=== PATIENT | male | born 1955 | race Caucasian/White ===

== ENCOUNTER 2020-09-04 08:30 | Day surgery (SDC) | payer OTHER ==
[~2020-09-04 08:30] MED LIST: LACTATED RINGERS 1,000 ML IV SCH; LIDOCAINE 1% (10MG/ML) FOR IV START INTRADERMA PRN
[2020-09-04 09:07] VITALS: TEMP 97.1
[2020-09-04] MEDS ORDERED: PROPOFOL 10 MG/ML 20 ML VIAL IV ONE (10:10)
--- NOTE | 2020-09-04 10:53 | P.PCN ---
Date of Procedure: 09/04/20 Description of Procedure: BRIEF HISTORY: Patient is a 65-year-old male presenting for outpatient colonoscopy for screening for malignant neoplasm of the colon. He was last colonoscopy was 9 years ago. He denies any change in bowel habits but reports chronic constipation at baseline and has used MiraLAX in the past. No family history of colon cancer. PROCEDURE PERFORMED: Colonoscopy with polypectomy. PREOPERATIVE DIAGNOSIS: Screening for malignant neoplasm of the colon, patient reports last colonoscopy 9 years ago. ESTIMATED BLOOD LOSS: Minimal. IV sedation per Anesthesia. PROCEDURE: After informed consent was obtained, the patient, was brought into the endoscopy unit. IV sedation was administered by Anesthesia under continuous monitoring. Digital rectal examination was normal. Initially the Olympus CF-190 flexible video colonoscope was then inserted in the rectum, gradually advanced into the cecum without any difficulty. Careful examination was performed as the scope was gradually being withdrawn. Ileocecal valve and the appendiceal orifice were visualized and appeared normal. Prep was excellent. Mucosa of the cecum, ascending colon, transverse colon, descending colon, sigmoid colon, and rectum appeared normal. Cold forceps polypectomy of diminutive polyps measuring 1-2 mm in size from the hepatic flexure 2, transverse colon, and rectum. Flat 4 mm descending colon polyp removed with cold snare polypectomy. Sessile rectal polyps measuring 5 and 6 mm in size removed with cold snare polypectomy. Retroflexion was performed in the rectum and no lesions were seen. The patient tolerated the procedure well. IMPRESSION: Cold snare polypectomy of a medium-sized polyps from the descending colon and rectum 2. Diminutive cold forcep polypectomy of polyps from the hepatic flexure 2, transverse colon and rectum. RECOMMENDATIONS: Findings of this examination were discussed with the patient. Okay to resume diet and medications. Await pathology from polypectomies. Follow-up with primary care provider as scheduled. Recommend repeat colonoscopy in 3 years for colon polyps pending pathology from polypectomies.
[2020-09-04 11:21] VITALS: BP 144/85; PULSE 64; RESP 16
== END 2020-09-04 11:27 | disposition home or self-care (01) ==
LOC: ORWHC2ENDO 08:30
PROVIDERS: ATTEND Internal Medicine
DX: D12.4 Benign neoplasm of descending colon (principal); D12.3 Benign neoplasm of transverse colon; K62.1 Rectal polyp; K59.09 Other constipation; I10 Essential (primary) hypertension; N40.0 Benign prostatic hyperplasia without lower urinary tract symptoms; Z87.891 Personal history of nicotine dependence; Z79.899 Other long term (current) drug therapy; Z98.890 Other specified postprocedural states
CPT/HCPCS: 88305; 45380; 45385; J2704